=== PATIENT | male | born 1945 ===

== ENCOUNTER 2016-12-06 12:56 | Inpatient (IN) | payer MEDICARE, OTHER ==
[~2016-12-06] VITALS: Ht 175.3 cm; Wt 88.5 kg
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
--- NOTE | 2016-12-06 14:30 | NUR ---
Received pt. in day room following admission to unit. Pt argumentative, frequently spoke of shooting people, made statements that staff was going to shoot him, spoke of Nazis and [employer], made threatening statements directed toward staff. Unaware of the day of the week or what city he was in.
[2016-12-06] MEDS ORDERED: VOLTAREN100 GM TOPICAL (14:59)
[2016-12-06] MEDS ORDERED: PROTONIX40 MG PO (14:59)
[2016-12-06] MEDS ORDERED: NORVASC5 MG PO (15:00)
[2016-12-06] MEDS ORDERED: LISINOPRIL10 MG PO (15:00)
[2016-12-06] MEDS ORDERED: ASPIRIN325 MG PO (15:01)
[2016-12-06] MEDS ORDERED: TRICOR145 MG PO (15:01)
[2016-12-06] MEDS ORDERED: NAMENDA5 MG PO (15:02)
[2016-12-06] MEDS ORDERED: ABILIFY2 MG PO (15:03)
[2016-12-06] MEDS ORDERED: CYMBALTA60 MG PO (15:03)
[2016-12-06] MEDS ORDERED: MIRAPEX0.125 MG PO (15:05)
[2016-12-06] MEDS ORDERED: NEURONTIN 300300 MG PO (15:06)
[2016-12-06] MEDS ORDERED: XALATAN 0.0052.5 ML EACH EYE (15:06)
[2016-12-06] MEDS ORDERED: SINGULAIR10 MG PO (15:07)
[2016-12-06] MEDS ORDERED: ZYLOPRIM100 MG PO (15:07)
[2016-12-06] MEDS ORDERED: CATAPRES0.1 MG PO (15:09)
[2016-12-06] MEDS ORDERED: VITAMIN D31000 UNIT PO (15:10)
[2016-12-06] MEDS ORDERED: MAG-OX 400 MG400 MG PO (15:15)
[2016-12-06] MEDS ORDERED: THEREMS-M1 TAB PO (15:19)
--- NOTE | 2016-12-06 17:22 | NUR ---
Pt becoming combative, threatening to break glass door and go home, unable to re-direct patient, extreme anxiety noted, code muscle called, Haldol 5 mg admin right deltoid per Lucy Fuentes RN, tolerated well.
--- NOTE | 2016-12-06 18:15 | NUR ---
Patient walking about day room. Stated that since he could not find car keys, he could just walk home. No further episodes of combative behavior noted.
[2016-12-06 19:30] VITALS: BP 118/69
[2016-12-06 20:00] VITALS: BP 153/93; BMI 28.9
[2016-12-06 21:00] VITALS: BP 118/69
--- NOTE | 2016-12-06 23:09 | NUR ---
B) Recieved patient in the day room, alert and oriented to self and hospital, confused, no outburst or other behaviors this shift, cooperative with care and assessment, I) no scheduled medications this shift, R) Resting no quietly in bed with eyes closed, P) continue plan of care, continue to monitor.
[2016-12-07 06:07] LABS: HEMOGLOBIN A1C 5.9 % (4.8-6.0)
[2016-12-07 06:27] LABS: CHOL - HDL RATIO 3.4 ratio (2.3-4.9); LDL-HDL RATIO 1.8 ratio (1.5-3.5); THYROID STIMULATING HORMONE 2.9 uIU/mL (0.36-3.74)
[2016-12-07 09:32] VITALS: BP 151/95
--- NOTE | 2016-12-07 09:56 | NUR ---
B) PATIENT IS CONFUSED, HE BELIEVES HE IS SOMEWHERE WORKING ON [employer]. HE IS GETTING A BIT IRRITATED AT THE TIME. HE MAKES DEROGATORY STATEMENTS ABOUT EVERYONE HERE NOT KNOWING ANYTHING ABOUT PLANES. PATIENT AMBULATES INDEPENDENTLY. I) PROVIDE PRESCRIBED MEDS. R) PATIENT IS COMPLIANT WITH MEDS AND HE WILL PARTICIPATE IN SOME GROUPS AND ACTIVITES, BUT REQUIRES MUCH REDIRECTION. P) CONTINUE PLAN OF CARE.
--- NOTE | 2016-12-07 10:27 | NUR ---
PATIENT GETTING AGITATED, HE DOESN'T WANT TO BE IN GROUPS HE SAYS "THEY'RE NAZI RUN" PATIENT MOVED HIMSELF OUT OF THE DAY ROOM AND HE IS TALKING DELUSIONAL, MAKING STATEMENTS ABOUT HIS MOM AND BEING DISCHARGED FROM THE [employer]. HE HAS BEEN REDIRECTED TO REALITY, BUT HIS ATTENTION SPAN IS NOT INTACT AND HE HAS POOR SHORT TERM MEMORY RECALL.
--- NOTE | 2016-12-07 10:42 | NUR ---
PATIENT SITTING ON TABLE IN DINING ROOM, HE IS CONFUSED AND IRRITABLE, HE KEEPS SAYING "GET ME MY AND I WILL DO WHATEVER YOU WANT" PATIENT IS AGITATED AND WANTS TO LEAVE. HE SAYS HE HAS A LOT OF WORK TO DO AND NO ONE HERE IS SMART ENOUGH TO DO ANYTHING. EXPLAINED TO HIM THAT BECAUSE HE IS AGITATED HE WILL NEED AN INJECTION. HE SAYS "NO, NOT WITHOUT SOMEONE GETTING HURT" DID CALL MISSY ALEXANDRE AND TWO MEN CAME AND HE WAS TALKED INTO RECEIVING THE INJECTION IN HIS RIGHT DELTOID. HE DID NOT FIGHT, BUT HE REMAINS WATCHFUL OF STAFF AND OTHER PATIENTS.
--- NOTE | 2016-12-07 11:10 | NUR ---
PATIENT IS STILL CONFUSED, DID TRY TO EXPLAIN TO HIM THAT HE IS IN THE HOSPITAL, HE SAYS "WELL, ARE YOU ALL TRYING TO KILL MY " EXPLAINED TO HIM THAT HE IS IN THE HOSPITAL AND THAT HE WILL HAVE SOME TESTS RUN AND MEDICATIONS CHANGED AND WE WILL SEE IF WE CAN CALM HIM DOWN WE WERE TOLD HE HAS BEEN HAVING AGGRESSION AND THAT IS PROBABLY NOT HOW HE NORMALLY BEHAVES. HE IS STILL CONCERNED ABOUT HIS . HE DOES NOT COMPREHEND, BUT HE IS LESS AGITATED SINCE HE HAD HIS INJECTION. STILL SITTING AWAY FROM THE OTHER PATIENTS AND STAFF.
--- NOTE | 2016-12-07 13:30 | NUR ---
PATIENT IS CALMER NOW, HE IS BECOMING UNSTEADY, BUT HE IS PLEASANT AND NOT AGITATED AT THIS TIME.
--- NOTE | 2016-12-07 13:43 | NUR ---
SW SPOKE WITH PT'S , BRIAN, AND GAVE REPORT ON PT'S BEHAVIORS ON THE UNIT. SW STATED VISITATION WOULD NOT BE ADVISED TODAY DUE TO PT HAVING AGGRESSIVE BEHAVIORS. SW ALSO EDUCATED ON DIFFERENT LEVELS OF PLACEMENT. PT'S STATED SHE WILL LOOK INTO COST AND START PREPARING.
[2016-12-07 14:18] VITALS: Ht 175.3 cm; Wt 88.5 kg
--- NOTE | 2016-12-07 16:28 | NUR ---
SPOKE WITH BRIANADIEL JOSHI, PATIENT'S . UPDATE GIVEN ON CONDITION AND EXPLAINED MEDICATIONS. QUESTIONS ANSWERED. VERBALIZED UNDERSTANDING.
[2016-12-07 20:24] VITALS: BP 125/69
--- NOTE | 2016-12-08 01:53 | NUR ---
PATIENT IN WHEELCHAIR IN DAYROOM. ORIENTED TO SELF ONLY, HE WAS SPEAKING VERY SOFTLY AND HAD LOOSE ASSOCIATIONS. PATIENT SHOWED NO AGGRESION, WAS CALM AND COMPLIANT WITH MEDICATION. CONTINUE TO MONITOR, CONTINUE PLAN OF CARE.
[2016-12-08 06:15] LABS: RAPID PLASMA REAGIN Non Reactive (Non Reactive)
[2016-12-08 09:01] VITALS: BP 127/74
[2016-12-08 09:17] LABS: FOLATE (FOLIC ACID) - SERUM 17.3 ng/mL (>3.0); VITAMIN D 25 HYDROXY 38.1 ng/mL (30.0-100.0)
--- NOTE | 2016-12-08 11:40 | NUR ---
B) PATIENT IS AWAKE AND HE IS INTERACTING IN GROUPS AND MED PASS. PATIENT IS CALM, HE HAS NOT SHOWN AGGRESSION TODAY. HIS BROUGHT CLOTHES, AND POA PAPERS, AND INSTRUCTIONS TO CARLYN AVERY SELF PAY COLLECTOR ON WHERE SHE WOULD LIKE PATIENT D/C'D. PATIENT HAS NOT BEEN AMBULATORY HE HAS BEEN PRESCRBED A NEW MED AND HE IS UNSTEADY THIS AM. I) PROVIDE PRESCRIBED MEDS AND REDIRECT NEEDED TO APPROPRIATE BEHAVIOR. R) PATIENT IS COMPLIANT WITH MEDS, BUT HE IS CONFUSED, HE HAS MADE A STATEMENT THIS AM "GET IN TOUCH WITH MY OTHER DAUGHTER, SHE IS ONLY ABOUT FOUR BLOCKS AWAY FROM ME" HE HAS ALSO MADE STATEMENTS THAT IN ABOUT FOUR WEEKS HE WILL BE RETIRED FROM THE [employer]. P) CONTINUE PLAN OF CARE.
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
--- NOTE | 2016-12-08 16:03 | NUR ---
PATIENT'S SPOUSE CALLED, CRYING, SHE ASKED "ARE YOU GUYS GOING TO BE TURNING LINDA LOOSE TODAY OR THIS WEEKEND?" TOLD HER NO, MA'AM, ASKED IF SHE WOULD LIKE TO SPEAK WITH [facility], SHE SAID "NO, THANK, YOU" THEN SAID "THANK YOU, SHA."
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
--- NOTE | 2016-12-08 18:26 | NUR ---
Called Dr. Bryant d/t patient's aggression, received new prn orders. See Mar.
[2016-12-08 21:50] VITALS: BP 127/69
--- NOTE | 2016-12-09 00:46 | NUR ---
B) recieve patient sitting in the dinning room in a gerichair, alert and oriented to self, hyperverbal wordsalad, thinks he is still in [employer], I) Administered perscribed medications redirected as needed, monitored for falls and safety, R) Medication compliant, in bed now talking to self P) Continue plan of care, continue to monitor.
[2016-12-09 09:28] VITALS: BP 117/57
--- NOTE | 2016-12-09 11:13 | NUR ---
B) PATIENT IS CONFUSED, HE IS COMPLIANT TO TAKE MEDS, BUT HE IS SLURRING HIS WORDS AND NONSENSICAL. HE TRIED TO STAND, BUT HE IS TOO CONFUSED AT THIS TIME. HE HAS NOT SHOWN AGGRESSION THIS AM, BUT HE IS SLEEPING AND TALKING IN HIS SLEEP, HE IS NONSENSICAL. I) PROVIDE PRESCRIBED MEDS. R) PATIENT IS RESTING IN VIBHA CHAIR, HE DID NOT EAT BREAKFAST, BUT HE IS DRINKING FLUIDS WELL. P) CONTINUE PLAN OF CARE.
--- NOTE | 2016-12-09 11:55 | NUR ---
PATIENT'S SPOUSE BROUGHT PATIENT A PAIR OF [employer] SHOES, BUT THEY DO NOT HAVE BACKS TO THEM IT IS NOT APPROPRIATE FOOT WEAR. PATIENT'S SPOUSE SAID "I HOPE HE DOESN'T FALL" AND THEN SHE LEFT THE SHOES AND LEFT THE UNIT.
--- NOTE | 2016-12-09 11:57 | PN ---
PATIENT:LINDA JOSHI MEDICAL RECORD: [id number] LOCATION:[facility] [address] ADMISSION DATE: 12/06/16 PROGRESS NOTE DATE OF SERVICE: 12/08/2016 SUBJECTIVE: The patient's case was discussed with staff. He has no new complaint. OBJECTIVE: The patient is in good behavioral control with limited insight about his condition. He is significantly impaired cognitively. ASSESSMENT: No change in diagnoses. PLAN: Current medicines have been reviewed and will be maintained. Long-term prognosis is guarded. Brief supportive and educational interventions were made. TRANSINT:[id number] Voice Confirmation ID: [id number] DOCUMENT ID: [id number] SARABJIT CORBETT MD at 1157 CC: [id number] DICTATION DATE: 12/08/16 1427 STICK ROLLER: 12/08/16 1447 ADM IN [id number] [place] [address]
[2016-12-09 19:30] VITALS: BP 116/85
--- NOTE | 2016-12-10 01:05 | NUR ---
B) Recieved patient in the day room laying in a gerichair, alert and oriented to self, slurred word salad, unaware of surroundings, unable to stand without assistance, I) Administered perscribed medications, assisted with ADL's, monitored for falls and safety, R) Medication compliant, total care patient, P) Continue plan of care, continue to monitor.
[2016-12-10 07:00] VITALS: BP 167/103
--- NOTE | 2016-12-10 08:10 | NUR ---
Given Ativan 1mg IM for increased anxiety and agitation.
--- NOTE | 2016-12-10 09:00 | NUR ---
Behavior calmer, rambling nonsensical garbled speech. Mood pleasant. Ativan PRN deemed effective.
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
[2016-12-10 19:30] VITALS: BP 168/95
--- NOTE | 2016-12-10 20:04 | NUR ---
RECEIVED IN DAYROOM. SITTING IN RECLINING CHAIR AT TABLE WITH STAFF AT HIS SIDE. CALM AND COOPERATIVE WITH CARE AND ASSESSMENT. NO SIGNS OF AGGRESSION. WORD SALAD. UNABLE TO VERBALIZE NEEDS. REINFORCE FALLS SAFETY. CONTINUES TO SIT QUIETLY IN RECLINER. CONTINUE PLAN OF CARE
[2016-12-11 08:08] VITALS: BP 119/59
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
--- NOTE | 2016-12-11 16:58 | PN ---
PATIENT:LINDA JOSHI MEDICAL RECORD: [id number] LOCATION:[facility] ADMISSION DATE: 12/06/16 PROGRESS NOTE DATE OF SERVICE: 12/11/2016 SUBJECTIVE: No new complaint. OBJECTIVE: The patient is [place] being [place] [facility]. He continues to show disorganized thinking and some moderate delusional ideation. Case management has been working closely with the patient's regarding disposition. Staff notes the patient has had a decreased in appetite over the last several days. On exam, mood is slightly anxious. Affect is very distant. Speech tends to be tangential. Flow of thought shows loosening of associations. Content of thought shows moderate paranoid ideation. Sensorium is unchanged. ASSESSMENT: No change in diagnosis. PLAN: 1. Add Megace 40 mg b.i.d. 2. Continue other current medications. 3. Continue supportive therapy. TRANSINT:[id number] Voice Confirmation ID: [id number] DOCUMENT ID: [id number] CELSA QUIROZ III, MD at 1658 CC: [id number] DICTATION DATE: 12/11/16 1144 CQ DEVELOPER: 12/11/16 1342 ADM IN [address] [place] [address]
--- NOTE | 2016-12-11 17:35 | NUR ---
RECEIVED THIS AM SITTING IN RECLINER.ORIENTED TO SELF ONLY.VERY CONFUSED,NO COMPLETE THOUGHTS SPOKEN.STATES HE IS IN THE UNDERGROUND WHEN ASKED WHERE HE IS.SLEEPS ALOT TODAY.COMPLIANT WITH MEDS.NO AGGRESSION OBSERVED THIS SHIFT.WILL CONTINUE WITH PLAN OF CARE,MONITOR FOR CHANGES AND SAFETY.
[2016-12-11 20:00] VITALS: BP 97/53
--- NOTE | 2016-12-11 20:22 | NUR ---
RECEIVED IN DAYROOM. SITTING IN RECLINER WITH EYES CLOSED. UNABLE TO VOICE NEEDS. WORD SALAD. NO SIGNS OF AGGRESSION. REIRECT AND REORIENT NEEDED. CONTINUES TO SIT QUIETLY IN RECLINER WITH EYES CLOSED AT TIMES. CONTINUE PLAN OF CARE
[2016-12-12 08:53] VITALS: BP 129/77
--- NOTE | 2016-12-12 18:09 | NUR ---
RECEIVED THIS AM SITTING IN RECLINER.IS ORIENTED TO SELF ONLY.ATTEMPTS TO REORIENT UNSUCCESSFUL.IS COMPLIANT WITH MEDS.MEDS TAKEN CRUSHED AND GIVEN IN PUDDING.TWISTED WRIST OF MHT THIS AM WHEN TRYING TO GET UP OUT OF RECLINER .GAIT IS VERY UNSTEADYAND IS NOT ALLOWED TO WALK WITHOUT ASSIST DUE TO RISK OF FALLS.ATIVAN 1MG IM GIVEN PER ORDERS WITH A GOOD RESPONSE RECEIVED.WILL CONTINUE WITH PLAN OF CARE,MONITOR FOR CHANGES AND SAFETY.
--- NOTE | 2016-12-12 19:37 | NUR ---
RECEIVED IN DAYROOM. SITTING IN RECLINER AT TABLE WITH EYES CLOSED. RESPONDS TO TOUCH. CONFUSED. CALM AND COOPERATIVE WITH CARE AND ASSESSMENTS. NO SIGNS OF AGGRESSION. REORIENT AND REDIRECT NEEDED. CONTINUES TO REST WITH EYES CLOSED. CONTINUE PLAN OF CARE
[2016-12-12 22:26] VITALS: BP 110/50
[2016-12-13 08:44] VITALS: BP 128/75
--- NOTE | 2016-12-13 09:08 | NUR ---
Nutrition Follow Up: Chart reviewed. Pt is eating 35% meal avg on an AHA diet. +BM 12/12/16. No new wt to assess. Labs noted. Meds noted including Deon Vit D. Pt continues with poor po intake. Will change diet to Regular to encourage po intake. Will continue to send selective menus and honor food preferences. RD following.
--- NOTE | 2016-12-13 11:54 | NUR ---
B) PATIENT IS AWAKE AND ALERT, HE IS HALLUCINATING, HE CAN STAND, BUT UNSTEADY. PATIENT IS CONFUSED, HE KNOWS HIS NAME, BUT NOT PLACE OR SITUATION. I) PROVIDE PRESCRIBED MEDS, REDIRECT NEEDED. R) PATIENT IS COMPLIANT WITH MEDS, BUT HE IS NOT REDIRECTABLE. P) CONTINUE PLAN OF CARE.
--- NOTE | 2016-12-13 17:25 | NUR ---
Patient sitting in sagrario chair, pulled up to table for dinner, continues to hallucinate, rambling talking out to unseen, pushing around in sagrario chair, noted wheezing, pulled up in sagrario chair in preparation for dinner. Dr. Bowen present, reported patient wheezing to him.
--- NOTE | 2016-12-13 17:34 | NUR ---
Tech now reporting patient is not looking good, assessed patient with rapid breathing oxygen saturation per pulse ox not registering. Dr. Bowen on floor in process of writing orders for updraft treatments instructed to put patient on oxygen, arrived back at patient oxygen placed, blood pressure 63/43, HR 105 rapid response called. Rapid response team responded and code blue called. team working code, patient bagged.
--- NOTE | 2016-12-13 17:55 | NUR ---
Patient prepared per code team to transfer to room 2302, transported off floor to ICU.
--- NOTE | 2016-12-13 18:03 | NUR ---
Called patient spouse Oralia Butler at [phone], no answer, voice mail.
--- NOTE | 2016-12-13 18:14 | NUR ---
Called patient spouse again, got voice mail, message left for her to return call to unit.
[2016-12-13 18:53] LABS: ANION GAP 20.6 mmol/L (8-16); CALCIUM 8.8 mg/dL (8.5-10.1); CARBON DIOXIDE 19.5 mmol/L (21.0-32.0); CREATININE - SERUM 2.1 mg/dL (0.6-1.3); POTASSIUM - SERUM 4.1 mmol/L (3.5-5.1)
[2016-12-13 19:28] LABS: BASOPHILS 0.3 % (0.0-2.0); EOSINOPHILS 0.8 % (0-7); HEMATOCRIT 41.3 % (42.0-54.0); HEMOGLOBIN 13.1 g/dL (13.5-17.5); IMMATURE GRANULOCYTES 0.1 % (0-5); LYMPHOCYTES 41.2 % (15-50); MCH 31.4 pg (26.0-34.0); MCHC 31.7 g/dL (31.0-37.0); MEAN PLATELET VOLUME 11.7 fL (7.4-10.4); MONOCYTES 8.8 % (2-11); NEUTROPHILS 48.8 % (40-80); PLATELET COUNT 186 10x3/uL (130-400); RBC 4.17 10x6/uL (4.20-6.10); RDW 13.4 % (11.5-14.5); WBC 7.3 10x3/uL (4.8-10.8)
--- NOTE | 2016-12-13 19:30 | NUR ---
No return call from patient spouse, again left message for return call.
--- NOTE | 2016-12-14 10:26 | PN ---
PATIENT:LINDA JOSHI MEDICAL RECORD: [id number] LOCATION:[facility] ADMISSION DATE: 12/06/16 PROGRESS NOTE DATE OF SERVICE: 12/06/2016 SUBJECTIVE: No coherent complaint. OBJECTIVE: The patient continues to show episodic agitation. He did require p.r.n. Ativan this morning. There is a possibility he may be transferred to a local residential. The patient's sister is working on this in coordination with case management. On exam, mood is somewhat irritable. Affect is constricted. Speech is terse and virtually incoherent. Content of thought is negative for suicidal ideation. The patient seems vaguely paranoid. Sensorium shows no change. ASSESSMENT: No change in diagnosis. PLAN: 1. Maintain current medications. 2. Continue supportive therapy. TRANSINT:[id number] Voice Confirmation ID: [id number] DOCUMENT ID: [id number] CELSA QUIROZ III, MD at 1026 CC: [id number] DICTATION DATE: 12/12/16 1214 REAL ESTATE OFFICE MANAGER: 12/12/16 1241 DIS IN 12/13/16 [facility] [address] [place] [address]
--- NOTE | 2016-12-14 14:31 | PN ---
PATIENT:LINDA JOSHI MEDICAL RECORD: [id number] LOCATION:[facility] [address] ADMISSION DATE: 12/06/16 PROGRESS NOTE DATE OF SERVICE: 12/13/2016 SUBJECTIVE: The patient's case was discussed with staff. He has no new complaint. OBJECTIVE: The patient denies intent to harm himself or others. He tolerates his medicines well. He apparently was combative earlier and had some p.r.n. Haldol. His prognosis is quite guarded. I have reviewed his medications and I do think that they have had an opportunity to become fully effective. I am going to monitor him for another day. TRANSINT:[id number] Voice Confirmation ID: [id number] DOCUMENT ID: [id number] SARABJIT CORBETT MD at 1431 CC: [id number] DICTATION DATE: 12/13/16 1408 PEOPLESOFT BUSINESS ANALYST: 12/13/16 1423 DIS IN 12/13/16 [address] [place] [address]
--- NOTE | 2016-12-17 06:18 | DS ---
PATIENT:LINDA JOSHI :41 MEDICAL RECORD: [id number] DISCHARGE SUMMARY ADMISSION DATE: 12/06/16 DISCHARGE DATE: 12/13/16 DATE OF ADMISSION: 12/06/2016 DATE OF DISCHARGE: 12/13/2016 HISTORY OF PRESENT ILLNESS: This was the first [facility] admission in one of several lifetime psychiatric contacts for this 71-year-old white male. He had been referred from [facility]. He had become extremely combative with his and had threatened to harm her. At the time of presentation, he was acutely psychotic and he believed that Nazis and people from [place] were trying to kill him. He had shown evidence of agitation and combativeness prior to assessment at [facility]. He had a past history of psychiatric problems and had [facility]. He had also been exhibiting early dementia and had been treated with Namenda. Because of worsening combativeness and psychosis, the patient was admitted. For further details, please see previously dictated history. COURSE IN THE HOSPITAL: The patient was assessed by Dr. Bowen. Dr. Bowen noted the presence of hypertension, hyperlipidemia, osteoarthritis, vitamin D deficiency, gastroesophageal reflux disease, glaucoma, gout and anemia. Following admission, the patient exhibited extreme agitation and combativeness. On several occasions, he was combative and assaultive toward staff. He did require p.r.n. use of haloperidol to control his extreme agitation. The patient was placed on Zyprexa Zydis for control of psychosis and agitation. Dosage was advanced to 5 mg twice a day. He was maintained on Namenda 5 mg twice a day along with his routine nonpsychiatric medications, which included Megace, Mirapex, Singulair, Cymbalta for depression, Neurontin, TriCor, Norvasc, Protonix and Catapres on a p.r.n. basis. The patient showed gradual improvement in his agitation; however, on the day of discharge, the patient developed sudden depression of level of consciousness with cyanosis and obvious difficulty breathing, and the patient was transferred and yee kent was called. The patient according to ER staff may have had a pulmonary embolus accounting for acute respiratory failure. The patient shortly after transfer. FINAL DIAGNOSES: AXIS I: Vascular dementia with psychotic features, posttraumatic stress disorder, alcoholism. AXIS II: No diagnosis. AXIS III: Acute cardiopulmonary arrest, possibly secondary to pulmonary embolus, hypertension, osteoarthritis, hyperlipidemia, and gastroesophageal reflux disease. TRANSINT:[id number] Voice Confirmation ID: [id number] DOCUMENT ID: [id number] DISCHARGE SUMMARY REPORT [id number] LINDA JOSHI III, CELSA West MD at 0618 CC: [id number] DICTATION DATE: 12/14/16 1127 PBX TEACHER: 12/15/16 0139 DIS IN 12/13/16 [place] [id number] [place] [id number]
== END 2016-12-13 18:27 | disposition short-term general hospital (02) | DRG 57 ==
LOC: D.PSYCH 12:56 → D.ICU 12-13 18:03 → D.PSYCH 12-13 18:03 → D.ICU 12-13 18:11 → D.PSYCH 12-13 18:27
PROVIDERS: Emergency Medicine; ADMIT Psychiatry & Neurology Psychiatry
DX: G30.9 Alzheimer's disease, unspecified (principal); F02.81 Dementia in other diseases classified elsewhere, unspecified severity, with behavioral disturbance; F01.51 Vascular dementia, unspecified severity, with behavioral disturbance; F43.10 Post-traumatic stress disorder, unspecified; F10.21 Alcohol dependence, in remission; I10 Essential (primary) hypertension; M19.90 Unspecified osteoarthritis, unspecified site; E78.5 Hyperlipidemia, unspecified; K21.9 Gastro-esophageal reflux disease without esophagitis; H40.9 Unspecified glaucoma; F32.9 Major depressive disorder, single episode, unspecified; E55.9 Vitamin D deficiency, unspecified; M10.9 Gout, unspecified; D64.9 Anemia, unspecified; I95.9 Hypotension, unspecified; R06.2 Wheezing; R41.82 Altered mental status, unspecified

== ENCOUNTER 2016-12-13 18:28 | Inpatient (IN) | payer MEDICARE, OTHER ==
[2016-12-07 14:18] VITALS: BMI 28.8
--- NOTE | 2016-12-13 18:20 | NUR ---
PT CODING BAGGING PATIENT TO ROOM. DR BRICEÑO AT BEDSIDE SEE CODE BLUE SHEET.
[~2016-12-13 18:28] MED LIST: ABILIFY2 MG PO; ASPIRIN325 MG PO; CATAPRES0.1 MG PO; CYMBALTA60 MG PO; LISINOPRIL10 MG PO; MAG-OX 400 MG400 MG PO; MIRAPEX0.125 MG PO; NAMENDA5 MG PO; NEURONTIN 300300 MG PO; NORVASC5 MG PO; PROTONIX40 MG PO; SINGULAIR10 MG PO; THEREMS-M1 TAB PO; TRICOR145 MG PO; VITAMIN D31000 UNIT PO; VOLTAREN100 GM TOPICAL; XALATAN 0.0052.5 ML EACH EYE; ZYLOPRIM100 MG PO
== END 2016-12-13 20:00 | DRG 316 ==
LOC: D.ICU 18:28
PROVIDERS: ADMIT Family Medicine
PROC: 5A12012 Performance of Cardiac Output, Single, Manual (ICD-10-PCS; principal; 2016-12-13)
PROC: 0BH17EZ Insertion of Endotracheal Airway into Trachea, Via Natural or Artificial Opening (ICD-10-PCS; 2016-12-13)
DX: I95.9 Hypotension, unspecified (principal); I46.9 Cardiac arrest, cause unspecified